=== PATIENT | female | born 1980 | race Caucasian/White ===

== ENCOUNTER 2020-09-21 14:00 | Observation (INO) ==
[2020-09-21] MEDS ORDERED: Gadolinium Contrast Agent (WT Based) IV PRN ×2 (14:58→15:19)
[2020-09-21] MEDS ORDERED: *HR* LORazepam 1 MG TABLET PO ONE (15:20)
[2020-09-21 15:32] LABS: Basophils % 0.2 %; Hematocrit 37.5 % (35.3-44.9); Hemoglobin 12.5 g/dL (11.5-15.4); Immature Granulocytes % 0.5 % (0-4); Lymphocytes # 2.5 K/mcL (0.6-4.6); Lymphocytes % 20.1 %; Mean Corpuscular HGB Conc 33.3 g/dL (31.6-35.5); Mean Corpuscular Hemoglobin 31.2 pg (28.0-33.3); Mean Corpuscular Volume 93.5 fL (83.0-100.0); Mean Platelet Volume 9.5 fL (9.4-12.4); Monocytes # 0.5 K/mcL (0.0-1.3); Monocytes % 4.3 %; Neutrophils # 9.4 K/mcL (1.6-8.9); Platelet Count 426 K/mcL (140-400); Red Blood Count 4.01 M/mcL (3.82-4.97); Segmented Neutrophils % 74.9 %; White Blood Count 12.5 K/mcL (4.3-11.1)
[2020-09-21 15:48] LABS: Alanine Aminotransferase 16 Units/L (7-52); Albumin 4.5 g/dL (3.5-5.7); Albumin/Globulin Ratio 1.5 (1.1-2.2); Alkaline Phosphatase 70 Units/L (34-104); Aspartate Amino Transferase 14 Units/L (13-39); BUN/Creatinine Ratio 17 (6-26); Bilirubin,Total 0.5 mg/dL (0.3-1.0); Blood Urea Nitrogen 10 mg/dL (6-20); Calcium 9.6 mg/dL (8.6-10.3); Carbon Dioxide 26 mEq/L (23-29); Chloride 105 mEq/L (98-107); Globulin 3.1 g/dL (2.4-3.5); Glucose 112 mg/dL (70-105); Osmolality,Calculated 286 (280-300); Sodium 138 mEq/L (136-145); Total Protein 7.6 g/dL (6.4-8.9); eGFR For African Americans > 60 (> 60); eGFR For Non-African Americans > 60 (> 60)
[2020-09-21 16:38] LABS: INR 1.1; Prothrombin Time 12.5 Seconds (9.4-12.1)
[2020-09-21] MEDS: Cyanocobalamin (B-12) 1,000 MCG TABLET PO SCH (22:42)
[2020-09-21] MEDS ORDERED: Acetaminophen 325 MG TABLET PO PRN (22:45)
[2020-09-21] MEDS ORDERED: Naloxone 0.4 MG/ML INJ IVP PRN (22:45)
[2020-09-21] MEDS ORDERED: Ondansetron 4 MG/2 ML VIAL IVP PRN (22:45)
[2020-09-21] MEDS ORDERED: Melatonin 3 MG TABLET PO PRN (22:45)
[2020-09-21] MEDS: Acyclovir 200 MG CAPSULE PO SCH (23:12)
[2020-09-21] MEDS: 0.9 % Sodium Chloride 1,000 ML IVC SCH (23:13)
[2020-09-21] MEDS: predniSONE 20 MG TABLET PO SCH (23:13)
[2020-09-22 06:26] LABS: Basophils % 0.4 %; Eosinophils % 0.1 %; Hematocrit 38.6 % (35.3-44.9); Hemoglobin 12.8 g/dL (11.5-15.4); Immature Granulocytes % 0.7 % (0-4); Lymphocytes # 1.8 K/mcL (0.6-4.6); Mean Corpuscular HGB Conc 33.2 g/dL (31.6-35.5); Mean Corpuscular Hemoglobin 31.8 pg (28.0-33.3); Mean Platelet Volume 9.8 fL (9.4-12.4); Monocytes # 0.2 K/mcL (0.0-1.3); Monocytes % 1.7 %; Neutrophils # 9.2 K/mcL (1.6-8.9); Platelet Count 401 K/mcL (140-400); Red Blood Count 4.02 M/mcL (3.82-4.97); Red Cell Distribution Width 12.1 % (11.5-14.5); Segmented Neutrophils % 81.1 %; White Blood Count 11.3 K/mcL (4.3-11.1)
[2020-09-22] MEDS: 0.9 % Sodium Chloride 1,000 ML IVC SCH (06:40)
[2020-09-22 06:46] LABS: Alanine Aminotransferase 12 Units/L (7-52); Albumin 4.1 g/dL (3.5-5.7); Albumin/Globulin Ratio 1.6 (1.1-2.2); Alkaline Phosphatase 68 Units/L (34-104); Aspartate Amino Transferase 13 Units/L (13-39); BUN/Creatinine Ratio 20 (6-26); Bilirubin,Total 0.5 mg/dL (0.3-1.0); Blood Urea Nitrogen 13 mg/dL (6-20); Carbon Dioxide 22 mEq/L (23-29); Chloride 107 mEq/L (98-107); Globulin 2.6 g/dL (2.4-3.5); Glucose 129 mg/dL (70-105); Osmolality,Calculated 284 (280-300); Potassium 4.2 mEq/L (3.5-5.1); Sodium 136 mEq/L (136-145); Total Protein 6.7 g/dL (6.4-8.9); eGFR For African Americans > 60 (> 60); eGFR For Non-African Americans > 60 (> 60)
[2020-09-22] MEDS: predniSONE 20 MG TABLET PO SCH (07:15)
[2020-09-22] MEDS: Cyanocobalamin (B-12) 1,000 MCG TABLET PO SCH (07:15)
[2020-09-22] MEDS: Acyclovir 200 MG CAPSULE PO SCH (07:15)
[2020-09-22] MEDS ORDERED: Acyclovir 200 MG CAPSULE PO SCH (09:00)
[2020-09-22] MEDS ORDERED: Multivit/Ca/Min/Fe/FA 1 TAB TABLET PO SCH (09:00)
[2020-09-22] MEDS ORDERED: predniSONE 20 MG TABLET PO SCH (09:00)
[2020-09-22 10:39] VITALS: BP 146/80
[2020-09-22 10:52] LABS: Appearance,CSF Clear (Clear)
[2020-09-22 10:55] LABS: Red Blood Cell,CSF < 2000 RBC/mcL
[2020-09-22 11:15] LABS: Glucose,CSF 74 mg/dL (40-70)
[2020-09-24 11:10] LABS: ANA IgG by ELISA DETECTED (None Detected)
[2020-09-24 22:17] LABS: ANA HEp-2 IgG IFA DETECTED (<1:80); Anti Nuclear Ab Pattern NUCLEOLAR
== END 2020-09-22 14:07 | disposition home or self-care (01) ==
LOC: 3BNU 14:00 → EMEROOARM 14:00 → SUATTDRO 21:32 → 3BNU 22:01
PROVIDERS: ADMIT Family Medicine; ATTEND Internal Medicine